=== PATIENT | male | born 1990 | race Caucasian/White ===

== ENCOUNTER → 2017-09-22 | Outpatient (CLI) | payer MEDICAID, SELFPAY | LOC: M OUTALCOH 09:04 | DX: F12.10 Cannabis abuse, uncomplicated (principal) ==

== ENCOUNTER 2017-10-05 13:26 | Outpatient (RCR) | payer MEDICAID, SELFPAY | END 2017-10-22 | LOC: M OUTALCOH 10-16 08:30 | DX: F12.10 Cannabis abuse, uncomplicated (principal); F15.10 Other stimulant abuse, uncomplicated; Z72.0 Tobacco use ==

== ENCOUNTER 2017-10-28 10:18 | Outpatient (RCR) | payer MEDICAID | END 2017-11-21 | LOC: M OUTALCOH 11-03 16:00 | DX: F12.10 Cannabis abuse, uncomplicated (principal); F15.10 Other stimulant abuse, uncomplicated; Z72.0 Tobacco use ==

== ENCOUNTER → 2017-11-13 | Outpatient (CLI) | payer MEDICAID ==
[2017-11-18 00:06] LABS: OXYCODONE SCREEN Negative ng/mL (Cutoff:5)
== END ==
LOC: M LAB 17:04
DX: F12.10 Cannabis abuse, uncomplicated (principal)
CPT/HCPCS: 36415

== ENCOUNTER 2017-11-24 16:00 | Outpatient (RCR) | payer OTHER, MEDICAID | END 2017-12-22 | LOC: M OUTALCOH 16:00 | DX: F12.10 Cannabis abuse, uncomplicated (principal); F15.10 Other stimulant abuse, uncomplicated; Z72.0 Tobacco use ==